=== PATIENT | male | born 1955 | race Native Hawaiian/Other Pacific Islander ===

== ENCOUNTER 2021-04-27 06:05 | Day surgery (SDC) | payer OTHER ==
[2021-04-27] MEDS ORDERED: LIDOCAINE (1%) 10 MG/1 ML VIAL 20 ML MDV ONE (07:01)
[2021-04-27] MEDS ORDERED: BUPIVACAINE/PF (0.25%) 2.5 MG/ML 30 ML VIAL INFILTRATI ONE ×2 (07:01→08:20)
[2021-04-27] MEDS ORDERED: LACTATED RINGERS 1,000 ML IV SCH ×2 (07:15→07:30)
[2021-04-27] MEDS ORDERED: LACTATED RINGERS 1,000 ML ONE (07:23)
--- NOTE | 2021-04-27 07:23 | Anesthesia Day of Surgery ---
Anesthesia Day of Surgery - Day of Surgery Patient Examined: Yes Patient H&P Reviewed: Yes Patient is NPO: Yes
[2021-04-27] MEDS ORDERED: LIDOCAINE PF 100 MG/5 ML (CARDIAC SYRINGE) IV ONE (07:24)
[2021-04-27] MEDS ORDERED: SUCCINYLCHOLINE CHLORIDE 200 MG/10 ML INJ MDV ONE (07:24)
[2021-04-27] MEDS ORDERED: ROCURONIUM 50 MG/5 ML INJ IV ONE (07:24)
--- NOTE | 2021-04-27 07:24 | Anesthesia Consultation ---
Anesthesia Consult and Med Hx Date of service: 04/27/21 - Airway Anesthetic Teeth Evaluation: Chipped ROM Head & Neck: Adequate Mental/Hyoid Distance: Adequate Mallampati Class: Class II Intubation Access Assessment: Probably Good - Pre-Operative Health Status ASA Pre-Surgery Classification: ASA2 Proposed Anesthetic Plan: MAC (GA if needed) - Pulmonary Hx Smoking: No Hx Sleep Apnea: No (DERIC PRE SCREEN HIGH RISK) - Cardiovascular System Hx Hypertension: Yes (X 2 YRS- DOES NOT TAKE MEDS REGULAR) - Central Nervous System Hx Psychiatric Problems: No - Hematic Hx Anemia: No - Other Systems Hx Cancer: Yes (Prostate)
[2021-04-27] MEDS ORDERED: MIDAZOLAM 2 MG/2 ML INJ ONE (07:25)
[2021-04-27] MEDS ORDERED: fentaNYL 100 MCG/2 ML INJ ONE (07:26)
[2021-04-27] MEDS ORDERED: propofoL 200 MG/20 ML VIAL IV ONE ×2 (07:26→08:00)
[2021-04-27] MEDS ORDERED: dexAMETHasone 20 MG/5 ML VIAL ONE (07:30)
[2021-04-27] MEDS ORDERED: KETAMINE/STERILE WATER 50 MG/ML SYRINGE ONE (07:59)
[2021-04-27] MEDS ORDERED: ceFAZolin/STERILE WATER 2 GM/20 ML SYRINGE IV NR (08:00)
[2021-04-27] MEDS ORDERED: HYDROmorphone 1 MG/1 ML INJ IV PRN ×2 (08:00)
[2021-04-27] MEDS ORDERED: ONDANSETRON 4 MG/2 ML INJ IV PRN (08:00)
[2021-04-27] MEDS ORDERED: ePHEDrine SULFATE 50 MG/1 ML INJ ONE (08:08)
[2021-04-27] MEDS ORDERED: LIDOCAINE (1%) 10 MG/1 ML VIAL 20 ML MDV INFILTRATI ONE (08:21)
--- NOTE | 2021-04-27 08:24 | Short Stay Summary ---
Short Stay Documentation Date of service: 04/27/21 - History Principal diagnosis: soft tissue mass left gluteal H&P: obtained from office - Allergies and Medications Current Medications: Allergies No Known Allergies Allergy (Verified 04/26/21 11:35) Home Medications Medication Instructions Recorded Confirmed Last Taken Type Indomethacin [Indocin] 50 mg PO PRN PRN 04/26/21 04/26/21 Unknown History Olmesartan (Nf) [Benicar (Nf)] 5 mg PO QDAY 04/26/21 04/27/21 04/27/21 05:00 History Tamsulosin [Flomax] 0.4 mg PO QDAY 04/26/21 04/27/21 04/26/21 09:00 History Active Medications Cefazolin Sodium (Cefazolin/Sterile Water 2 Gm/20 Ml Syringe) 2 gm IV PREOP NR Stop: 04/27/21 21:00 Hydromorphone HCl (Hydromorphone 1 Mg/1 Ml Inj) 0.25 mg IV Q10MIN PRN PRN Reason: Pain, Moderate (4-6) Stop: 04/27/21 17:00 Hydromorphone HCl (Hydromorphone 1 Mg/1 Ml Inj) 0.5 mg IV Q10MIN PRN PRN Reason: Pain , Severe (7-10) Stop: 04/27/21 18:00 Lactated Ringer's (Lactated Ringers) 1,000 mls @ 125 mls/hr IV DIRECT CONSTANCE Last Admin: 04/27/21 07:25 Dose: 125 mls/hr Documented by: Ondansetron HCl (Ondansetron 4 Mg/2 Ml Inj) 4 mg IV ONCE PRN PRN Reason: Nausea And Vomiting Stop: 04/27/21 18:00 - Brief post op/procedure progress note Date of procedure: 04/27/21 Pre-op diagnosis: left gluteal soft tissue mass Post-op diagnosis: same Procedure: excisions soft tissue masses left gluteal Anesthesia: MAC, local Findings: 1. 2cm soft tissue mass of left buttock 2. Three skin tags of left buttock Surgeon: ALEXIS RAGSDALE Estimated blood loss: minimal Pathology: list (1. soft tissue mass left buttock, 2. skin tags left buttock x3) Specimen disposition: to lab Condition: stable - Hospital course Hospital course: Pt observed in PACU and discharged to home in stable condition - Disposition Condition at discharge: Good Disposition: DC-01 TO HOME OR SELFCARE Short Stay Discharge Plan Activity: no restrictions Diet: regular Wound: open to air (May shower tomorrow. Pat incisions dry, do not scrub. Do not submerge incision in water x2 weeks) Additional Instructions: May take over the counter tylenol or ibuprofen for pain Apply ice pack to area for additional pain relief. Follow up with: PRIMARY CARE, [Primary Care Provider] - 7 Days ALEXIS RAGSDALE DO [Staff Physician] - 14 Days
[2021-04-27 10:01] VITALS: BP 135/81
--- NOTE | 2021-04-27 11:12 | Operative Report ---
Operative Report Operative Report: Date of procedure: 04/27/21 Pre-op diagnosis: left gluteal soft tissue mass Post-op diagnosis: same Procedure: excisions soft tissue masses left gluteal Anesthesia: MAC, local Findings: 1. 2cm soft tissue mass of left buttock 2. Three skin tags of left buttock Surgeon: ALEXIS RAGSDALE Estimated blood loss: minimal Pathology: list (1. soft tissue mass left buttock, 2. skin tags left buttock x3) Specimen disposition: to lab Hospital course: Pt observed in PACU and discharged to home in stable condition HPI and indication: Patient is a 65-year-old male who presented to surgery clinic for evaluation of a left buttock soft tissue mass. The patient also had 3 exophytic skin tags which were bothersome which she also wanted evaluated for removal. A 2 cm soft tissue mass was palpable on the left lower buttock. It was recommended that all 3 skin tags along with a soft tissue mass be excised. All risks, benefits, alternatives to surgery were discussed with the patient questions answered. Consent was obtained. Procedure in detail: Patient was identified in the preoperative area and the operative site marked. The patient was taken back to the operating room and placed on the operating room table in left lateral decubitus position with all bony prominences padded appropriately. A beanbag was used for support. The left buttock was prepped and draped in the usual sterile fashion and a timeout performed. Local anesthetic was infiltrated into the skin at all incision sites. The patient had 2 subcentimeter exophytic skin tags in the upper left buttock which were removed with a 15 blade. Any bleeding from the skin was controlled using electrocautery and hemostasis ensured. I then turned my attention to a larger skin tag on the lower aspect of the left buttock which measured approximately 1.5 cm. An elliptical incision was made at the broad base of the skin tag using a 15 blade and it was transected. Bleeding from the skin was controlled using electrocautery and hemostasis ensured. Approximately 2 cm cephalad to this was a soft tissue mass. An incision was made in the skin using a 15 blade and dissection carried out through the subcutaneous tissue using electrocautery until the mass was encountered. The mass was grasped with a hemostat and appeared lobulated and fatty consistent with a lipoma. This was dissected from the surrounding tissue using a hemostat and transected from the underlying tissue using a Bovie. The entirety of the mass was excised and measured approximately 2 cm. The wound was checked for hemostasis which was very carefully ensured. The skin of this incision was then approximated with 4-0 Monocryl subcuticular interrupted stitches. The skin of the larger skin tag was also approximated with a single interrupted 4-0 Monocryl subcuticular stitch. Local anesthetic was infiltrated into all skin incision sites once again. The skin was cleansed and dried and skin glue was applied to all of the sites. At the end of the case, all sponge, instrument, sharp counts were correct x2. The patient was awoken from anesthesia and taken to PACU in stable condition.
--- NOTE | 2021-04-27 14:25 | Post Anesthesia Evaluation ---
- Post Anesthesia Evaluation Patient Participated: Yes Airway Patent: Yes Stable Respiratory Function: Yes Nausea/Vomiting: No Temp > 96.8F: Yes Pain Manageable: Yes Adequeate Hydration: Yes Anesthesia Complications: No Block Receding Appropriately: Not Applicable Patient on Ventilator: No
== END 2021-04-27 09:50 | disposition home or self-care (01) ==
LOC: OR 06:05
PROVIDERS: ATTEND Surgery
DX: D17.1 Benign lipomatous neoplasm of skin and subcutaneous tissue of trunk (principal); I10 Essential (primary) hypertension; E78.00 Pure hypercholesterolemia, unspecified; M19.90 Unspecified osteoarthritis, unspecified site; Z79.899 Other long term (current) drug therapy; Z98.890 Other specified postprocedural states
CPT/HCPCS: 11402; 88304; J0690; J1100; J2001; J2250; J2405; J2704; J3010; J3490; J7120; 88305; 88307; J0330